=== PATIENT | male | born 1980 | race African-American/Black ===

== ENCOUNTER 2018-06-25 17:53 | Emergency (ER) | payer MEDICAID ==
[~2018-06-25] VITALS: Ht 167.6 cm; Wt 81.6 kg
--- NOTE | 2018-06-25 18:16 | Emergency Room Report ---
History of Present Illness General Chief Complaint: Lower Extremity Injury Source: Patient Present Illness HPI Patient 30-year-old male presents after increased left ankle pain. Patient reports having recently jumped from height onto his left ankle. Patient reports having increased pain. Patient was brought in by EMS. History is markedly limited by patient's poor cooperation Allergies: Coded Allergies: No Known Allergies (Unverified , 06/25/18) Patient History Reviewed Nursing Documentation: PMH: Agreed; PSxH: Agreed Nursing Documentation-PMH Past Medical History: No Stated History Review of Systems All Other Systems: limited - by poor historian Physical Exam Vital Signs Date Time Temp Pulse Resp B/P (MAP) Pulse Ox O2 Delivery O2 Flow Rate FiO2 06/25/18 17:43 98.3 78 16 127/78 100 Room Air 98.2 General Appearance: well appearing, no apparent distress, alert, GCS 15 Head: normocephalic, atraumatic ENT: hearing grossly normal, normal voice Neck: full range of motion, supple Respiratory: no respiratory distress, speaking full sentences Musculoskeletal: swelling - decreased ROM Neurologic: alert, oriented x3, responsive, wirer maintenance III-XII nml as tested, normal gait Psychiatric: other - hostile Skin: no rash Medical Decision Making Diagnostic Impression: Primary Impression: Calcaneus fracture, left ER Course Patient presented for fall. Differential diagnosis included was not limited to fracture, dislocation, sprain among others. The patient was noted to have evidence of left calcaneal fracture. Patient was placed in a posterior splint. Patient denies any back discomfort.The patient was given crutches. The patient the stated he wanted to leave. The patient is advised to not bear weight onto his foot. He is advised to follow-up with orthopedics immediately Last Vital Signs Date Time Temp Pulse Resp B/P (MAP) Pulse Ox O2 Delivery O2 Flow Rate FiO2 06/25/18 18:09 98.3 06/25/18 17:43 78 16 127/78 100 Room Air Status: improved Disposition: HOME, SELF-CARE Condition: Stable Scripts Ibuprofen* (MOTRIN*) 600 Mg Tablet 600 MG ORAL Q8H PRN for For Pain, #30 TAB 0 Refills Prov: Brandon Elder MD 06/25/18 Hydrocodone Bit/Acetaminophen 5-325* (NORCO 5-325*) 1 Each Tablet 1 TAB ORAL Q6H PRN for For Pain, #20 TAB 0 Refills Prov: Brandon Elder MD 06/25/18 Brandon Elder MD Jun 25, 2018 18:16
[2018-06-25] MEDS ORDERED: Ketorolac 30mg Inj IM ONE (19:00)
[2018-06-25] MEDS ORDERED: IBUPROFEN600 MG ORAL (19:28)
[2018-06-25] MEDS ORDERED: NORCO 5-325 TA1 EACH ORAL (19:28)
[2018-06-25 19:35] VITALS: BP 127/87
[2018-06-25 19:36] VITALS: BP 127/87
--- NOTE | 2018-06-26 09:25 | Diagnostic Imaging Report ---
Indication: Pain, status post fall Technique: 3 views of the left ankle Comparison: none Findings: There is a comminuted minimally displaced fracture of the calcaneus. No other acute fractures are demonstrated. There is questionably an old screw hole in the distal tibia, seen only on one view so suspect artifactual. Impression: Positive for calcaneal fracture positive for calcaneal fracture This agrees with the ER physician interpretation reported in the electronic medical record
== END 2018-06-25 19:36 | disposition home or self-care (01) ==
LOC: EDBD 17:53 → EMR 19:04
DX: S92.002A Unspecified fracture of left calcaneus, initial encounter for closed fracture (principal); Y93.39 Activity, other involving climbing, rappelling and jumping off; Y92.9 Unspecified place or not applicable
CPT/HCPCS: 73610; 96372; 99283; J1885